=== PATIENT | female | born 1960 | race Caucasian/White ===

== ENCOUNTER 2020-12-11 08:48 | Outpatient (CLI) | payer OTHER, SELFPAY ==
--- NOTE | ~2020-12-11 | MM_ITS ---
EXAMINATION: MM screening [facility] w joan HISTORY: Screening TECHNIQUE: Craniocaudal and mediolateral oblique 3-D tomosynthesis images were obtained and synthetic 2-D images were generated. CAD analysis was submitted and interpreted. COMPARISON: Comparison to multiple prior studies sequentially, with oldest reviewed study dated 12/24. BREAST PARENCHYMAL COMPOSITION: There are scattered areas of fibroglandular density. FINDINGS: There is no evidence of suspicious mass, calcification, or architectural distortion to sugg est malignancy in either breast. There has been no suspicious interval change. IMPRESSION: 1. No mammographic evidence of malignancy. 2. Recommend routine screening mammography in one year. BI-RADS Category 1: Negative Reviewed, dictated and finalized at location A.
== END 2020-12-11 08:49 | disposition home or self-care (01) ==
LOC: ANHIMG 08:57
PROVIDERS: Visit Provider Nurse Practitioner Obstetrics & Gynecology
DX: Z12.31 Encounter for screening mammogram for malignant neoplasm of breast (principal)
CPT/HCPCS: 77063; 77067

== ENCOUNTER 2022-01-21 09:13 | Outpatient (CLI) | payer OTHER, SELFPAY ==
--- NOTE | ~2022-01-21 | MM_ITS ---
EXAMINATION: MM screening [facility] BI w joan HISTORY: Screening TECHNIQUE: Craniocaudal and mediolateral oblique 3-D tomosynthesis images were obtained and synthetic 2-D images were generated. CAD analysis was submitted and interpreted. COMPARISON: Comparison to multiple prior studies sequentially, with oldest reviewed study dated 12/11. BREAST PARENCHYMAL COMPOSITION: There are scattered areas of fibroglandular density. FINDINGS: There is no evidence of suspicious mass, calcification, or architectural distortion to sugg est malignancy in either breast. There has been no suspicious interval change. IMPRESSION: 1. No mammographic evidence of malignancy. 2. Recommend routine screening mammography in one year. BI-RADS Category 1: Negative Reviewed, dictated and finalized at location A.
== END 2022-01-21 09:14 | disposition home or self-care (01) ==
PROVIDERS: Visit Provider Nurse Practitioner Obstetrics & Gynecology
DX: Z12.31 Encounter for screening mammogram for malignant neoplasm of breast (principal)
CPT/HCPCS: 77063; 77067

== ENCOUNTER → 2022-08-15 13:58 | Outpatient (CLI) | payer OTHER, SELFPAY ==
--- NOTE | ~2022-08-15 | XR_ITS ---
XR hand LT 2V DATE: 08/15/2022 14:18 INDICATION: Left hand pain TECHNIQUE: AP and lateral views COMPARISON: None FINDINGS: There is osteopenia. There is mild osteoarthritis at the first carpometacarpal joint. No erosive change or chondrocalcinosis. No fracture or dislocation, periosteal reaction or bone destr uction. IMPRESSION: Mild osteoarthritis at first carpometacarpal joint Reviewed, dictated and finalized at location B. TER OPERATOR
--- NOTE | ~2022-08-15 | XR_ITS ---
XR hand RT 2V DATE: 08/15/2022 14:18 INDICATION: Right hand pain TECHNIQUE: AP and lateral views COMPARISON: None FINDINGS: There is osteopenia. There is mild osteoarthritis at the first carpometacarpal joint, first metacarpophalangeal joint and multiple interphalangeal joints. No erosive change is evident. No chondrocalcinosis. No fracture, dislocation, periosteal reaction or bone destruction. IMPRESSION: Mild polyarticular osteoarthritis Reviewed, dictated and finalized at location B. DRILL OPERATOR
== END ==
PROVIDERS: PCP Internal Medicine Geriatric Medicine; Visit Provider Physician Assistant
DX: M25.50 Pain in unspecified joint (principal); Z79.899 Other long term (current) drug therapy; M19.042 Primary osteoarthritis, left hand; M19.041 Primary osteoarthritis, right hand
CPT/HCPCS: 73120

== ENCOUNTER 2023-07-14 14:07 | Outpatient (CLI) | payer OTHER, SELFPAY ==
--- NOTE | ~2023-07-14 | MM_ITS ---
EXAMINATION: MM screening [facility] BI w joan HISTORY: Screening TECHNIQUE: Craniocaudal and mediolateral oblique 3-D tomosynthesis images were obtained and synthetic 2-D images were generated. CAD analysis was submitted and interpreted. COMPARISON: Comparison to multiple prior studies sequentially, with oldest reviewed study dated 08/28. BREAST PARENCHYMAL COMPOSITION: There are scattered areas of fibroglandular density. FINDINGS: There is no evidence of suspicious mass, calcification, or architectural distortion to sugg est malignancy in either breast. There has been no suspicious interval change. IMPRESSION: 1. No mammographic evidence of malignancy. 2. Recommend routine screening mammography in one year. BI-RADS Category 1: Negative Reviewed, dictated and finalized at location A.
--- NOTE | ~2023-07-14 | DEXA_ITS ---
Bone Density Report Name: YANNI SHEETS Age: 63 Sex: Female Ethnicity: White Date of : 1960 Indication: osteopenia; parental hip fracture; postmenopausal Referring Provider: BRADY, SASCHA Delgado Study: Bone densitometry was performed. Exam Date: July 14, 2023 Accession number: [id number] Bone Density: Region BMD T-score Z-score Classification AP Spine(L1-L4) 0.756 -2.6 -1.1 Osteoporosis Femoral Neck (Left) 0.587 -2.4 -1.0 Osteopenia Total Hip (Left) 0.731 -1.7 -0.7 Osteopenia Femoral Neck (Right) 0.596 -2.3 -0.9 Osteopenia Total Hip (Right) 0.728 -1.8 -0.7 Osteopenia Total Hip Mean 0.729 -1.8 -0.7 Osteopenia World Health Organization criteria for BMD impression classify patients as: Normal (T-score at or above -1.0), Osteopenia (T-score between -1.0 and -2.5), or Osteoporosis (T-score at or below -2.5). 10-year Fracture Risk: FRAX not reported because: Some T-score for Spine Total or Hip Total or Femoral Neck at or below -2.5 Previous Exams: Region Exam Age BMD T-score BMD Change BMD Change Date g/cm2 vs Baseline vs Previous AP Spine (L1-L4) 07/14/2023 63 0.756 -2.6 -0.123 (-14.0% -0.123 (-14.0% 10/04/2019 59 0.878 -1.5 Total Hip(Left) 07/14/2023 63 0.731 -1.7 -0.035 (-4.6%) -0.035 (-4.6%) 10/04/2019 59 0.766 -1.4 Total Hip(Right) 07/14/2023 63 0.728 -1.8 -0.072 (-9.0%) -0.072 (-9.0%) 10/04/2019 59 0.799 -1.2 *Denotes significance at 95% confidence level, LSC for AP Spine = 0.022 g/cm2, LSC for Total Hip = 0.027 g/cm2 # Denotes dissimilar scan types or analysis methods Clinical Information Provided by Patient: Parent has had a hip fracture Has used the following medications: Vitamin D Patient maximum height was 63.5 Menopause Age: 51 Drinks caffeinated beverages Onset of menses at age 15 Number of children 3 Impression: The patient has osteoporosis, based on the Total Spine T-score. The patient has risk factors, including: parental hip fracture. The BMD for the Total Hip(Left) decreased, changing by -4.6% since the last DXA exam. The BMD for the Total Hip(Right) decreased, changing by -9.0% since the last DXA exam. Discussion: INCREASED RISK OF FRACTURE. BONE DENSITY IS UNDESIRABLY LOW AT ONE OR MORE SKELETAL SITES, CONSISTENT WITH POSTMENOPAUSAL OSTEOPOROSIS. This patient's lowest T-score meets the World Health Organization's (WHO) criteria for osteoporosis at one or more sites (T-score -2.5 or belo
== END 2023-07-14 14:08 | disposition home or self-care (01) ==
PROVIDERS: PCP Internal Medicine Geriatric Medicine; Visit Provider Nurse Practitioner Obstetrics & Gynecology
DX: Z12.31 Encounter for screening mammogram for malignant neoplasm of breast (principal); M81.0 Age-related osteoporosis without current pathological fracture; M85.852 Other specified disorders of bone density and structure, left thigh; M85.851 Other specified disorders of bone density and structure, right thigh
CPT/HCPCS: 77063; 77067; 77080

== ENCOUNTER → 2023-09-07 09:24 | Outpatient (CLI) | payer OTHER, SELFPAY ==
--- NOTE | ~2023-09-07 | XR_ITS ---
EXAMINATION: XR sacroiliac joints min 3V INDICATION: Bilateral sacroiliac joint pain TECHNIQUE: Three views of the sacroiliac joints are obtained. COMPARISON: None available FINDINGS: Bone alignment is normal. There is no fracture. No erosion or sclerosis of the sacroiliac j oints is identified. The soft tissues are unremarkable. IMPRESSION: 1. Unremarkable sacroiliac joints. Reviewed, dictated and finalized at location B. SHOP SUPERVISOR
== END ==
PROVIDERS: PCP Internal Medicine Geriatric Medicine; Visit Provider Physician Assistant
DX: M53.3 Sacrococcygeal disorders, not elsewhere classified (principal); G89.29 Other chronic pain
CPT/HCPCS: 72202

== ENCOUNTER 2023-11-29 06:17 | Emergency (ER) | payer OTHER, SELFPAY ==
[2023-11-29 06:18] VITALS: BP 93/73; PULSE 99; RESP 20; TEMP 36.9; O2SAT 99
[2023-11-29 07:12] LABS: Influenza A QL RT-PCR Positive (Negative); Influenza B QL RT-PCR Negative (Negative); RSV RNA, RT-PCR Negative (Negative); SARS-CoV-2 RNA PCR Negative (Negative)
--- NOTE | 2023-11-29 07:12 | ED.GENADULT ---
HPI - General Adult General Chief complaint: Upper Respiratory Infection Stated complaint: headache Time Seen by Provider: 11/29/23 07:01 History of Present Illness HPI narrative: Patient is a 63-year-old female who presents ER with concern for influenza exposure and infection. She was around her granddaughter 3 days ago when she was swabbed and tested positive for influenza A. Over last today patient has had headache as well as body aches and fatigue. She reports mild cough but that has been going on for over week. She did not get the flu shot. Related Data Allergies Allergy/AdvReac Type Severity Reaction Status Date / Time No Known Allergies Allergy Unknown Verified 11/29/23 06:30 Review of Systems Review of Systems: All systems reviewed & are unremarkable except as noted in HPI and below Constitutional: Constitutional: Reports fatigue and Reports weakness ENT: Reports system reviewed and no additional complaints, except as documented Cardiovascular: Cardiovascular: Reports no additional cardiovascular complaints Respiratory: Respiratory: Reports no additional respiratory complaints Musculoskeletal: Musculoskeletal: Reports myalgias, Denies arthralgias and Denies joint swelling Neurologic: Reports headache(s), Denies focal weakness and Denies numbness PMFSH Past Medical History Medical History (Updated 11/29/23 @ 07:20 by Zachery Rader MD) Fibromyalgia Myocardial infarction Surgical History Surgical History (Updated 11/29/23 @ 07:17 by Zachery Rader MD) History of dilation and curettage Exam Narrative: GENERAL: Well-appearing, well-nourished, and in no acute distress. HEAD: Normocephalic, atraumatic. EYES: PERRL and EOMI. CHEST: Clear to auscultation. No respiratory distress. HEART: Regular rate and rhythm. Normal peripheral pulses. EXTREMITIES: Normal range of motion. No edema. SKIN: Warm, dry, no rash. NEURO: Alert and oriented x3. PSYCH: Normal mood and affect. Course Course Emergency Course: Patient has influenza A. Will give IV fluid as well as Toradol. Discussed prescription for Tamiflu and supportive care outpatient. Patient verbalized understanding. Vital Signs Vital signs: Vital Signs Temperature 98.4 F 11/29/23 06:18 Pulse Rate 99 11/29/23 06:18 Respiratory Rate 20 11/29/23 06:18 Blood Pressure 93/73 L 11/29/23 06:18 Pulse Oximetry 99 11/29/23 06:18 Oxygen Delivery Room Air 11/29/23 06:18 Temperature 98.4 F 11/29/23 06:18 Pulse Rate 99 11/29/23 06:18 Respiratory Rate 20 11/29/23 06:18 Blood Pressure 93/73 L 11/29/23 06:18 Pulse Oximetry 99 11/29/23 06:18 Oxygen Delivery Room Air 11/29/23 06:27 Medical Decision Making Vital Signs Vital Signs: Vital Signs Temperature 98.4 F 11/29/23 06:18 Pulse Rate 99 11/29/23 06:18 Respiratory Rate 20 11/29/23 06:18 Blood Pressure 93/73 L 11/29/23 06:18 Pulse Oximetry 99 11/29/23 06:18 Oxygen Delivery Room Air 11/29/23 06:18 Temperature 98.4 F 11/29/23 06:18 Pulse Rate 99 11/29/23 06:18 Respiratory Rate 20 11/29/23 06:18 Blood Pressure 93/73 L 11/29/23 06:18 Pulse Oximetry 99 11/29/23 06:18 Oxygen Delivery Room Air 11/29/23 06:27 Lab Data Labs: Lab Results 11/29/23 Range/Units 06:31 Influenza A (RT-PCR) Positive A (Negative) Influenza B (RT-PCR) Negative (Negative) RSV (RT-PCR) Negative (Negative) SARS-CoV-2 RNA (RT-PCR) Negative (Negative) Discharge Plan Discharge Clinical Impression: Influenza A Patient Disposition: Home, Self-Care Condition: Stable Instructions: Influenza (ED) Additional Instructions: As discussed you have a Influenza. You will be prescribed tamiflu to help shorten the duration of your illness. Antibiotics do not work for viral illnesses. However, you can take Acetaminophen or Ibuprofen to help with fevers and pain. Stay well hydrated and rested.
[2023-11-29] MEDS: SODIUM CHLORIDE 0.9% IV 1,000 ML 999 ML IV CONT (07:26)
[2023-11-29] MEDS: KETOROLAC 30 MG/ML VIAL (*BKC) IV PUSH (07:26)
[2023-11-29 08:28] VITALS: BP 158/82; PULSE 96; RESP 18; O2SAT 96
== END 2023-11-29 08:32 | disposition home or self-care (01) ==
LOC: ANHED 07:35
PROVIDERS: Emergency Medicine; Emergency Provider Emergency Medicine; PCP Internal Medicine Geriatric Medicine
DX: J10.1 Influenza due to other identified influenza virus with other respiratory manifestations (principal); Z20.822 Contact with and (suspected) exposure to COVID-19; I25.2 Old myocardial infarction; M79.7 Fibromyalgia
CPT/HCPCS: 87637; 96361; 96374; 99284; J1885; J7030

== ENCOUNTER 2024-11-04 12:23 | Outpatient (CLI) | payer OTHER, SELFPAY ==
--- NOTE | ~2024-11-04 | XR_ITS ---
EXAMINATION: XR chest 2V DATE: 11/04/2024 12:41 INDICATION: Cough. TECHNIQUE: Frontal and lateral views of the chest were obtained. COMPARISON: None. FINDINGS: There is no pneumonia, pleural effusion, or pneumothorax. The heart size is normal. IMPRESSION: 1. No acute cardiopulmonary disease. Reviewed, dictated and finalized at location A. D WASTE ENGINEER
== END 2024-11-04 12:24 | disposition home or self-care (01) ==
LOC: MICIMG 12:24
PROVIDERS: PCP Physician Assistant; Visit Provider Physician Assistant
DX: R05.9 Cough, unspecified (principal)
CPT/HCPCS: 71046

== ENCOUNTER 2025-04-06 07:47 | Outpatient (CLI) | payer OTHER, SELFPAY ==
--- NOTE | ~2025-04-06 | US_ITS ---
Limited Abdominal Sonogram: Real-time sonographic imaging of the right upper quadrant was performed. Clinical History: Elevated alkaline phosphatase Findings: The liver appears normal with no evidence of mass lesion or bile duct dilatation. Main por katelyn vein demonstrates normal direction of flow. The gallbladder is well distended, and appears normal with no evidence of gallstone or wall thickening. The common bile duct measures 3 mm. The visualize d pancreas, aorta, and IVC are unremarkable. Impression: No significant abnormality seen. Reviewed, dictated and finalized at location M. Impression: No significant abnormality seen.
== END 2025-04-06 07:48 | disposition home or self-care (01) ==
LOC: MICIMG 07:47
PROVIDERS: PCP Physician Assistant; Visit Provider Physician Assistant
DX: R74.8 Abnormal levels of other serum enzymes (principal)
CPT/HCPCS: 76705